=== PATIENT | female | born 1990 | race Caucasian/White ===

== ENCOUNTER → 2020-10-28 12:42 | Outpatient (CLI) | payer MEDICAID, SELFPAY ==
[2020-10-28 13:19] LABS: Absolute Lymphocyte Count 2.05 X10^3/uL (0.83-4.51); Absolute Neutrophil Count 6.2 X10^3/uL (2.0-7.7); Basophil# 0.05 X10^3/uL; Basophil% 0.5 % (0-1); Eosinophil# 0.07 X10^3/uL; Eosinophils% 0.8 % (0-5); Hematocrit 36.5 % (37-47); Hemoglobin 12.5 g/dL (12.0-15.0); Lymphocyte # 2.05 X10^3/ul (0.83-4.51); Lymphocyte % 22.3 % (19-41); Mean Corp Hgb Conc 34.2 g/dL (32-36); Mean Corpuscular Hgb 30.3 pg (27.0-32.0); Mean Corpuscular Volume 88.4 fL (81-99); Mean Platelet Vol. 9.9 fl (6.2-12.0); Monocyte# 0.74 X10^3/uL; Monocyte% 8.1 % (0-10); NRBC Flagged by Analyzer 0 % (0-5); Neutrophil # 6.22 X10^3/uL (2.7-7.7); Neutrophil % 67.8 % (47-70); Platelet Count 290 K/mm3 (150-450); RBC Distribution Width CV 12.7 % (11.6-14.6); RBC Distribution Width SD 41.3 fl (35.1-43.9); Red Blood Count 4.13 M/mm3 (4.2-5.4); White Blood Count 9.2 K/mm3 (4.4-11.0)
[2020-10-28 13:21] LABS: Color, Urine Yellow (Yellow); Glucose, Dipstick Normal (Normal); Ketone-Dipstick 15 mg/dl (Negative); Leukocyte Esterase-Dipstick 100 /ul (Negative); Nitrite-Dipstick Negative (Negative); Occult Blood-Urine 10 /ul (Negative); Protein-Dipstick 30 mg/dl (Negative); Urine Bilirubin Dipstick Negative (Negative); Urine Clarity Cloudy (Clear); Urine Urobilinogen Normal (Normal)
[2020-10-28 13:39] LABS: Amphetamine Urine VISTA NEGATIVE (<1000 ng/mL); Barbiturate Urine VISTA NEGATIVE (< 200 ng/mL); Benzodiazepine Urine VISTA NEGATIVE (< 200 ng/mL); Cocaine Urine VISTA NEGATIVE (< 300 ng/mL); Ecstacy Urine VISTA NEGATIVE (< 500 ng/mL); Methadone Urine VISTA NEGATIVE (< 300 ng/mL); PCP Urine VISTA NEGATIVE (< 25 ng/mL); THC Urine VISTA NEGATIVE (< 50 ng/mL); Vista UDS pH Range 5
[2020-10-28 14:27] LABS: HIV - WCH Non-Reactive (Nonreactive); Hepatitis B Surface Antigen Non-Reactive (Nonreactive); Hepatitis C Antibody Non-Reactive (Nonreactive); Rubella IgG Reactive (Nonreactive); Syphilis Antibodies Non-reactive
[2020-10-30 03:07] LABS: Chlamydia By Nucleic Acid AMP Negative (Negative)
[2020-10-30 14:34] LABS: Gonococcus By Nucleic Acid AMP Negative (Negative)
== END ==
PROVIDERS: Visit Provider Obstetrics & Gynecology
DX: Z34.82 Encounter for supervision of other normal pregnancy, second trimester (principal); Z11.3 Encounter for screening for infections with a predominantly sexual mode of transmission
CPT/HCPCS: 36415; 80307; 81002; 84443; 85025; 86703; 86762; 86780; 86803; 87086; 87088; 87340; 87491; 87591

== ENCOUNTER → 2020-12-01 14:08 | Outpatient (CLI) | payer MEDICAID, SELFPAY ==
[2020-12-01 15:03] LABS: Glucose Challenge Gest 1H 50g 112 mg/dL (70-140); Hematocrit 34.7 % (37-47); Hemoglobin 11.3 g/dL (12.0-15.0); Mean Corp Hgb Conc 32.6 g/dL (32-36); Mean Corpuscular Hgb 29.3 pg (27.0-32.0); Mean Corpuscular Volume 89.9 fL (81-99); Mean Platelet Vol. 10.5 fl (6.2-12.0); Platelet Count 386 K/mm3 (150-450); RBC Distribution Width CV 12.5 % (11.6-14.6); RBC Distribution Width SD 40.6 fl (35.1-43.9); Red Blood Count 3.86 M/mm3 (4.2-5.4); White Blood Count 8.6 K/mm3 (4.4-11.0)
== END ==
PROVIDERS: Visit Provider Obstetrics & Gynecology
DX: Z34.83 Encounter for supervision of other normal pregnancy, third trimester (principal)
CPT/HCPCS: 36415; 82950; 85027

== ENCOUNTER → 2021-01-12 | Outpatient (CLI) | payer MEDICAID, SELFPAY | END | disposition home or self-care (01) | LOC: LABSPEC 16:35 | PROVIDERS: Visit Provider Obstetrics & Gynecology | DX: Z36.85 Encounter for antenatal screening for Streptococcus B (principal) | CPT/HCPCS: 87081 ==

== ENCOUNTER 2021-02-05 18:20 | Outpatient (CLI) | payer MEDICAID, SELFPAY ==
[2021-02-05 18:30] VITALS: BMI 29.5
[2021-02-05 18:35] VITALS: BP 118/79; PULSE 95; TEMP 37; O2SAT 98
[2021-02-05 18:38] VITALS: PULSE 95; O2SAT 98
[2021-02-05 20:40] VITALS: BP 110/77; PULSE 90; TEMP 37.1; O2SAT 96
[2021-02-06 00:23] VITALS: BP 104/61; PULSE 102; TEMP 36.9; O2SAT 94
[2021-02-06 04:12] VITALS: BP 114/68; PULSE 90; PULSE 96; TEMP 36.8; O2SAT 96
[2021-02-06 07:17] VITALS: BP 99/70; PULSE 89; TEMP 36.9
--- NOTE | 2021-02-09 08:42 | OB.TRI.NOTE ---
HPI - General HPI Narrative HAILEY GILL, is a 30 F who presents to labor and delivery at 40+ weeks gestation with some contractions. Patient scheduled for elective induction later this week. PFSH PFSH Home Medications vit-iron fum-folic ac [ Fa] 1 tab PO DAILY 02/05/21 [History Last Taken 02/07/21 08:00] Allergy/AdvReac Type Severity Reaction Status Date / Time No Known Allergies Allergy Verified 02/05/21 18:31 Social History Smoking Status: Never smoker History Elective abortions Hx Para 1 Spontaneous abortions Hx # Term Pregnancies Ectopic pregnancies Hx # Pregnancies Multiple births # of living children NST FHR Rate Baby A NST Reactive:: Yes FHR Category:: Category I Assessment & Plan (1) False labor, antepartum: PLAN: 40+ week intrauterine with false labor. After monitoring for several hours and overnight cervix did not change. Given this patient will return for scheduled induction later this week. heart tones are reactive.
== END 2021-02-06 07:30 | disposition home or self-care (01) ==
LOC: WPOUT 18:25 → WP 18:25
PROVIDERS: Visit Provider Obstetrics & Gynecology
DX: O47.1 False labor at or after 37 completed weeks of gestation (principal); Z3A.40 40 weeks gestation of pregnancy
CPT/HCPCS: 59025; 59050; 99218; G0378

== ENCOUNTER 2021-02-09 05:40 | Inpatient (IN) | payer MEDICAID, SELFPAY ==
[2021-02-09] VITALS (67 sets, daily range): BP systolic 87–127; BP diastolic 53–86; PULSE 78–139; RESP 16; TEMP 36.1–37.6; O2SAT 92–100; BMI 29.8
[2021-02-09 01:55] LABS: ROM Internal Control Test YES-OK TO RESULT pt. (Internal QC); ROM Patient Test Negative (Negative)
[2021-02-09] MEDS: Lactated Ringers 1,000 ML 50 ML IV (05:15)
[2021-02-09 05:31] LABS: Absolute Lymphocyte Count 2.12 X10^3/uL (0.83-4.51); Absolute Neutrophil Count 7.3 X10^3/uL (2.0-7.7); Basophil# 0.06 X10^3/uL; Basophil% 0.6 % (0-1); Eosinophil# 0.07 X10^3/uL; Eosinophils% 0.7 % (0-5); Hematocrit 36.3 % (37-47); Hemoglobin 12.5 g/dL (12.0-15.0); Lymphocyte # 2.12 X10^3/ul (0.83-4.51); Mean Corp Hgb Conc 34.4 g/dL (32-36); Mean Corpuscular Hgb 29.6 pg (27.0-32.0); Mean Platelet Vol. 10.8 fl (6.2-12.0); Monocyte# 0.97 X10^3/uL; Monocyte% 9.2 % (0-10); NRBC Flagged by Analyzer 0 % (0-5); Neutrophil # 7.32 X10^3/uL (2.7-7.7); Neutrophil % 69.1 % (47-70); Platelet Count 267 K/mm3 (150-450); RBC Distribution Width CV 13.7 % (11.6-14.6); RBC Distribution Width SD 42.4 fl (35.1-43.9); Red Blood Count 4.22 M/mm3 (4.2-5.4); White Blood Count 10.6 K/mm3 (4.4-11.0)
--- NOTE | 2021-02-09 06:55 | PCM.HP.BLA ---
History and Physical Date of Admission: 02/09/21 HPI: 30-year-old G3, P1 at 40/5 weeks, ALAN 02/04/2021 by LMP, admitted for induction of labor at term. Reports contractions. Denies leaking of fluid, vaginal bleeding, reports movement. Denies headache, vision changes, chest pain, shortness of breath, nausea or vomiting, diarrhea constipation, fevers or chills. complicated by: Late care, Covid positive during [employer] history: G1 2016 SAB 2017 39-week G3 current Medical history: Denies Surgical history: Left foot at 7 years old, left hand as baby, rebreak and reset of left wrist as child Medications: vitamin Family history: Noncontributory. No history of blood clots or bleeding disorders Allergies: No known drug allergies Social history: Denies tobacco, alcohol, drug use Review of systems: Negative otherwise stated as above Physical exam: Blood pressure 127/86 // pulse 84// oxygen saturation 97% on room air General: Patient is no acute distress HEENT: Normocephalic/atraumatic, PERRLA Cardiorespiratory: No increased effort, no accessory muscle use, Giller heart rate Abdomen: Soft, nontender, gravid Extremities: Minimal edema Musculoskeletal: Strength 5 out of 5 throughout all extremities Neurologic: Cranial nerves II through XII grossly intact Cervical exam: Per RN 3 cm heart rate: 140/mod larissa/+accel/no decel [place]: q3-5 panel: O+ Rubella immune Syphilis negative HIV nonreactive hepatitis B nonreactive hepatitis C nonreactive gonorrhea/chlamydia negative negative GBS negative Labs today: WBC 10.6, hemoglobin/hematocrit 12.5/36.3, platelets 267 Covid negative Assessment/plan: 30-year-old G3, P1 at 40/5 weeks admitted for induction of labor at term. complicated by late care and Covid during . -Admit to labor and delivery for Pitocin induction - Routine orders - GBS neg 01/12 Assessment & Plan Assessment/Plan (1) Elective induction of labor planned:
[2021-02-09] MEDS: Lactated Ringers 500 ML 999 ML IV (07:35)
[2021-02-09] MEDS: fentaNYL-bupivacaine (epidural) 100 ML BAG EPIDURAL ×2 (08:55→14:52)
[2021-02-09 09:19] LABS: Amphetamine Urine VISTA NEGATIVE (<1000 ng/mL); Barbiturate Urine VISTA NEGATIVE (< 200 ng/mL); Benzodiazepine Urine VISTA NEGATIVE (< 200 ng/mL); Cocaine Urine VISTA NEGATIVE (< 300 ng/mL); Ecstacy Urine VISTA NEGATIVE (< 500 ng/mL); Methadone Urine VISTA NEGATIVE (< 300 ng/mL); PCP Urine VISTA NEGATIVE (< 25 ng/mL); THC Urine VISTA NEGATIVE (< 50 ng/mL); Vista UDS pH Range 7
[2021-02-09] MEDS: Amnioinfusion- 0.9% NS 1,000 ML IV.SOLN. 1000 ML INTRA-UTER (12:43)
[2021-02-09] MEDS: Lactated Ringers 1,000 ML 200 ML IV (12:55)
[2021-02-09] MEDS: Ondansetron 4 MG/2 ML Vial IV (16:55)
[2021-02-09] MEDS: Oxytocin 30 units/NS 500 ml 30 UNITS/500 ML IV.SOLN 334 UNITS IV (18:16)
--- NOTE | 2021-02-09 18:33 | EX.PCM.OBRPT ---
Maternal Data Information Final ALAN: 02/04/21 Final ALAN Source: US <20 weeks Gestational age: 40w6d Doctor Who Attended Delivery: Connor Auguste Vaginal Delivery Maternal Presentation Maternal Presentation: Medically Indicated Induction Medical Reason for Induction: Post term Operative Information Date of Procedure: 02/09/21 Pre-Operative Diagnosis: IUP, Postdatism Post-Operative Diagnosis: IUP, Postdatism Surgery / Procedure Performed: Spontaneous Vaginal Delivery Type of Anesthesia: Epidural Estimated Blood Loss: 250 cc Findings Description of Procedure: Spontaneous vaginal delivery of a viable female with Apgars of 8/9 from an occiput anterior presentation with thick meconium stained fluid and meconium stained three-vessel placenta. No episiotomy. No laceration. Sponges okay. Nose mouth and oropharynx bulb suctioned on perineum. Delivery physician: Richard Ellis MD. Presentation: Vertex Amniotic Membrane Rupture Type: Artificial Amniotic Fluid Description: Thick meconium Placental Delivery Description: Spontaneous Placenta Disposition: [facility] Cord Vessel Description: 3 Vessels Cord Entanglement: None A Gender: Female (1 minute): 8 (5 minute): 9 Post Vaginal Delivery Medications Given After Delivery: IV Pitocin Episiotomy Description: None Laceration: None Complication Complications: None
[2021-02-09] MEDS: Acetaminophen 500 MG Tablet 1000 MG PO (19:25)
[2021-02-09] MEDS: 0.9% Saline Lock 10 ML Syringe IV (20:42)
[2021-02-10 03:54] VITALS: BP 108/68; PULSE 82; RESP 16; TEMP 37.2
[2021-02-10] MEDS: Acetaminophen 500 MG Tablet 1000 MG PO ×2 (05:43→16:08)
--- NOTE | 2021-02-10 08:19 | PCM.DC ---
Discharge Instructions Diet Discharge Diet: No restrictions Activity Discharge Activity: Return to Normal Activity, May Drive and May Shower May resume sexual activity in: 4-6 weeks Weight Bearing Status: Weight bearing as tolerated Dressing / Incision Call your doctor if your incision/area has: Continuous Slow Oozing and Foul Smelling Discharge Call your doctor if you observe: Fever of 101 or Higher, Shortness of breath and Chest pain Follow Up Care Please Follow Up With: Nirmal Knutson MD When: 4 to 6 weeks Test Results: Test results from this visit will be discussed in further detail at your follow-up appointment, if applicable. Discharge Plan Admission Admit Date/Time: 02/09/21 05:40 Attending Provider: Richard Ellis Discharge Orders/Prescriptions Prescriptions: No Action Fa 60 mg iron-1 mg Tablet 1 tab PO DAILY RF: 0 Disposition Discharge Orders: Discharge Patient (Routine); Ordered 02/10/21 Ordered By: Dr. Nirmal Knutson
--- NOTE | 2021-02-10 08:20 | PCM.PN.OB ---
Subjective Subjective No overnight complaints Objective Data Objective Data Vital Signs: Vital Signs Temp Pulse Resp BP Pulse Ox 99.0 F 82 16 108/68 97 02/10/21 03:54 02/10/21 03:54 02/10/21 03:54 02/10/21 03:54 02/09/21 20:23 Oxygen Delivery Method Room Air Weight: 147 lb 9.6 oz Body Mass Index (BMI) 29.8 Intake & Output: Intake and Output for Last 24 Hours 02/08/21 02/09/21 02/10/21 23:59 23:59 23:59 Intake Total 2995.44 / 2995.44 Output Total 1500 / 1500 Balance 1495.44 / 1495.44 Lab / Micro Data Result Diagrams: 02/09/21 05:15 Labs: Laboratory Results - last 24 hr 02/09/21 08:30: Urine Opiates Screen NEGATIVE, Urine Methadone Screen NEGATIVE, Ur Barbiturates Screen NEGATIVE, Ur Phencyclidine Scrn NEGATIVE, Ur Amphetamines Screen NEGATIVE, U Methamphetamin-MDMA NEGATIVE, U Benzodiazepines Scrn NEGATIVE, Urine Cocaine Screen NEGATIVE, U Cannabinoids Screen NEGATIVE, Ur Drug Screen Comment Micro: Microbiology 02/09/21 05:20 Nasal Secretion SARS-CoV-2 Antigen (Rapid) - Final Physical Exam Const alert, oriented x3, no apparent distress, average body habitus, healthy appearing and well nourished HEENT normocephalic and moist oral mucous membranes Head and Scalp: atraumatic Face and Sinus: normal facial exam Eyes PERRL Neck full ROM Resp normal respiratory effort, no retractions and no use of accessory muscles GI normal to inspection, nondistended, normoactive bowel sounds GI Narrative: Uterus firm and below umbilicus Extremity normal to inspection, full ROM and no clubbing, cyanosis or edema Psych mental status grossly normal, affect normal, speech normal and activity/motor behavior normal Assessment & Plan (1) Vaginal delivery: PLAN: day 1. Breast-feeding. Pain well controlled. Okay to discharge home today if okay with hadoop infrastructure architect
[2021-02-10 08:42] VITALS: BP 106/65; PULSE 82; RESP 18; TEMP 36.7
[2021-02-10 12:33] VITALS: BP 111/78; PULSE 81; RESP 20; TEMP 36.5
--- NOTE | 2021-02-10 12:52 | CM.ED ---
Addendum entered by Edel Gonzalez 02/10/21 13:18: SW provided patient with resources on HMG, counseling agencies, phone support numbers and on line support resources for PPD. Edel TAYLOR Addendum entered by Edle Gonzalez 02/10/21 12:58: 02/09 tox Negative for mother Addendum entered by Edel Gonzalez 02/10/21 12:57: SW noted that patient is from [place] but delivered locally. Patient said that she does not trust [facility] and FOB said that he does not trust [facility]. Patient said that she gave to son in [place] and FOB said that his daughter, with a different mother, was born at [place] and then went to [facility]. Both said that they are very comfortable with the care they have received at [facility]. Edel TAYLOR Original Note: PAOLO Note Referral Source: MD Referral Reason: Late PNC SW spoke to TARI Carrion and preceptor RN who said that they had no concerns regarding patient and nb's well being. Mom: Noemi PNC: Malou OB Control: IUD at 6 weeks SW inquired about patient's late PNC. Patient said that she did not feel it was necessary to come every month to pee in a cup. Patient said if I had complications with my son I wouldn't have done it. Patient said that she went to [facility] for Ultrasounds. Patient was in the room with nb and fob. Patient gave verbal consent to speak to her in the presence of the FOB. Patient was noted to be and bonding while being interviewed by this quality analyst/technical writer. NB: Renata Solomon : [birth year] Apgars: 8/9 Weight: 6# 2 ounces Resident Associate: Dr. [facility] at [facility] Patient is breast feeding the nb. SW asked how the breast feeding is going and she said it depends on if she is awake. MOB's other children: Walker, age 4. FOB has 8 year old daughter who he has shared parenting with the daughter's mother so the daughter is there 50/50. Children are with patient's mother currently. Housing: Patient, FOB and there 3 children reside in a house in [place]. Transportation: Patient reports access to car and she is able to drive. Supplies: Patient reports she has a car seat, pack and play, bassinet, crib, diapers and clothing for the nb. Supports: Patient reports her supports are her neighbors and family. Patient reports that her family is from [place] and the FOB's family is from [place] Education Level: Patient reports that she graduated high school and college ([employer] with major in psychology). Patient reports no learning issues or delays. Employment: No current employment outside of the home. Patient said that she is unsure if she will return to work due to the high cost of childcare. 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 Agency Involvement: Medicaid through [place]. Patient inquired about food stamps eligibility guidelines and this quality analyst/technical writer noted that this quality analyst/technical writer is unsure of the current guidelines. Patient said that she would check at home on line for the income guidelines. NO HMG, WIC, Counseling or legal issues. No past or current CSB issues. Patient was open to this quality analyst/technical writer making referral to WIC. FOB: [employer] Time Together: 6 years Involved at : FOB was holding and interacting with the nb. He appears to be involved at . 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 He reports that he will take off the rest of this week and the later part of next week to assist at home. FOB's MH/AOD/DV: Patient denied Maternal MH History: Patient denied any anxiety, depression or PPD. Patient was educated on PPD, Shaken Baby Syndrome and Safe Sleeping Patient reports very limited alcohol use. She said that she did not drink while . She said that her last drink was DUGLAS which was 3 months before she was . Patient said that in the summer she may have one drink, when she is not . Paolo updated RN's. PAOLO made WIC referral Plan: Home at discharge Edel TAYLOR
[2021-02-10 16:15] VITALS: BP 107/73; PULSE 79; RESP 18; TEMP 36.7
[2021-02-10 19:59] VITALS: BP 117/86; PULSE 86; RESP 18
[2021-02-11 02:47] VITALS: BP 127/85; PULSE 77; RESP 18; TEMP 36.5
[2021-02-11 07:40] VITALS: BP 129/88; PULSE 77; RESP 16; TEMP 36.6
--- NOTE | 2021-02-11 09:57 | PCM.PN.OB ---
Subjective Subjective day 2. Lochia minimal. Breast-feeding going well. Objective Data Objective Data Vital Signs: Vital Signs Temp Pulse Resp BP Pulse Ox 97.8 F 77 16 129/88 H 97 02/11/21 07:40 02/11/21 07:40 02/11/21 07:40 02/11/21 07:40 02/09/21 20:23 Oxygen Delivery Method Room Air Weight: 66.95 kg Body Mass Index (BMI) 29.8 Intake & Output: Intake and Output for Last 24 Hours 02/09/21 02/10/21 02/11/21 23:59 23:59 23:59 Intake Total 2995.44 / 2995.44 Output Total 1500 / 1500 Balance 1495.44 / 1495.44 Lab / Micro Data Result Diagrams: 02/09/21 05:15 Micro: Microbiology 02/09/21 05:20 Nasal Secretion SARS-CoV-2 Antigen (Rapid) - Final Physical Exam Const alert, oriented x3 and no apparent distress HEENT normocephalic Head and Scalp: atraumatic Neck full ROM Resp normal respiratory effort Cardio regular rate GI normal to inspection, nondistended, normoactive bowel sounds GI Narrative: Uterus 2 cm below umbilicus Back/Spine normal ROM Extremity normal to inspection Extremity Narrative: Minimal pedal edema Neuro no focal motor deficits and no sensory deficits noted Psych mental status grossly normal and affect normal Assessment & Plan (1) Vaginal delivery: PLAN: day 2. feeling well. Lochia minimal. Breast-feeding going well. Discharge home today.
[2021-02-11 14:00] VITALS: BP 127/77; PULSE 86; RESP 16; TEMP 37; O2SAT 99
--- NOTE | 2021-02-16 15:11 | MDS.RN ---
Follow up phone call completed, patient doing well. Exclusively pumping and has good milk supply, baby over birthweight. Bleeding is decreased and she denies and RIVAS, vision changes or flu like symptoms. Patient denied any further questions.
== END 2021-02-11 14:30 | disposition home or self-care (01) | DRG 560 ==
LOC: WPOUT 05:43 → WP 05:43
PROVIDERS: Admitting Provider Student in an Organized Health Care Education/Training Program; Visit Provider Obstetrics & Gynecology
DX: O48.0 Post-term pregnancy (principal); Z20.822 Contact with and (suspected) exposure to COVID-19; O77.0 Labor and delivery complicated by meconium in amniotic fluid; Z86.16 Personal history of COVID-19; Z3A.40 40 weeks gestation of pregnancy; Z37.0 Single live birth
CPT/HCPCS: 59025; 59050; 80307; 84112; 85025; 86850; 86900; 86901; 87426; 99218; J7030; J7120; A4216; G0378; J2405